=== PATIENT | male | born 1955 | race Caucasian/White ===

== ENCOUNTER 2024-10-08 06:01 | Day surgery (SDC) | payer OTHER, SELFPAY ==
[2024-09-30 10:25] VITALS: BMI 23.5
[2024-09-30 12:17] LABS: Hematocrit 41.5 % (39.0-52.0); Hemoglobin 13.4 g/dL (13.0-18.0); Mean Corp Hgb Conc. 32.3 g/dL (33.0-37.0); Mean Corpuscular Volume 86.6 fL (80.0-94.0); Mean Platelet Volume 12.4 fL (7.4-10.4); Platelet Count 164 10^3/uL (130-400); Red Blood Cell Count 4.79 10^6/uL (4.70-6.10); Red Cell Dist. Width 12.9 % (11.5-14.5); White Blood Cell Count 3.8 10^3/uL (4.8-10.8)
[2024-09-30 12:54] LABS: Blood Urea Nitrogen 10 mg/dl (9-20); Calcium 9.2 mg/dl (8.4-10.2); Carbon Dioxide 25 mmol/L (22-30); Chloride 111 mmol/L (98-107); Estimated Creatinine Clearance > 125 ml/min; Glucose 97 mg/dl (70-99); Potassium 4.2 mmol/L (3.5-5.1); Sodium 141 mmol/L (135-145); eGFR > 60.00
--- NOTE | 2024-10-01 14:30 | CM ---
CM was updated that patient does not have post operative supervision and plans to use an [employer] for transportation home. CM spoke with patient and encouraged patient to speak with his coworker this evening to confirm that he can provide transportation
home. CM provide patient with CM's cell phone number and encouraged him to call back with his post operative plan. CM updated PAT RN with discussions.
--- NOTE | 2024-10-02 12:46 | CM ---
Addendum entered by Gris Urban RN 10/06/24 13:20:
CM was updated by patient that his friend Curtis Jones will be picking patient up post-operatively. His phone is [phone].
Original Note:
CM left message for patient to discuss if he has secured a ride and supervision post operatively. CM will remain available.
[2024-10-08] VITALS (15 sets, daily range): BP systolic 132–177; BP diastolic 82–91; BMI 23.5
[2024-10-08] MEDS: CYSVIEW KIT 100 MG INTRAVES (06:17)
[2024-10-08] MEDS: NORMOSOL-R/PLASMALYTE-A 1000 IV (06:27)
[2024-10-08] MEDS: Pyridium 200 MG PO (08:33)
== END 2024-10-08 13:00 | disposition home or self-care (01) ==
LOC: SDS 06:01
PROVIDERS: ATTENDING PHYSICIAN Specialist
DX: N30.20 Other chronic cystitis without hematuria (principal); N32.9 Bladder disorder, unspecified
CPT/HCPCS: 52204; 88305; 36415; 80048; 85027; 93005; A9589